=== PATIENT | female | born 1960 | race Caucasian/White ===

== ENCOUNTER 2019-12-30 12:51 | Outpatient (NON) | payer OTHER, SELFPAY ==
[2019-12-30 14:09] LABS: Crystals Synovial Fluid None Seen (None Seen)
[2019-12-30 14:19] LABS: Source Synovial Fluid Synovial fluid
[2019-12-30 14:20] LABS: Appearance Synovial Fluid Hazy (Clear); Color Synovial Fluid Yellow (Colorless); Lymphocytes Synovial Fluid 89 %; Macrophages Synovial Fluid 1 %; Monocytes Synovial Fluid 9 %; Neutrophils Synovial Fluid 1 % (0-25); Nucleated Cell Synovial Fluid 640 /uL (0-200); RBC Synovial Fluid 0 /uL (0-0)
== END 2019-12-30 12:52 ==
PROVIDERS: Visit Provider Orthopaedic Surgery
DX: M25.461 Effusion, right knee (principal); M25.561 Pain in right knee
CPT/HCPCS: 88108; 89051; 89060

== ENCOUNTER 2024-12-08 12:56 | Outpatient (CLI) | payer MEDICARE, OTHER, SELFPAY ==
[2024-12-08 14:51] LABS: Anion Gap -3 mmol/L (4-12); Blood Urea Nitrogen 20 mg/dL (7-17); Calcium 9.4 mg/dL (8.4-10.2); Carbon Dioxide 26 mmol/L (22-30); Chloride 102 mmol/L (98-107); Estimated Glomerular Filt Rate > 60; Glucose 123 mg/dL (65-110); Potassium 4.2 mmol/L (3.4-5.0); Sodium 125 mmol/L (137-145)
--- OUTSIDE RECORDS SUMMARY | 2024-12-08 15:53 | XMS_ITS | Clinical Summary ---
Author Organization [facility] Address [address] [place] [phone] Care Team Providers Care Senior Bioinformatics Specialist Name Role Phone Dom Ta MD Primary Care Provider [phone] Allergies Active Allergy Reactions Criticality Noted Date Comments Erythromycin Penicillins Medications phentermine (ADIPEX-P) 37.5 mg tablet phentermine 37.5 mg tablet TK 1 T PO QD Active meloxicam (MOBIC) 15 mg tablet TK 1 T PO QD 0 Active olmesartan-hydr ochlorothiazide (BENICAR HCT) 20-12.5 mg per tablet Take 1 tablet by mouth daily 7 Active cyclobenzaprine (FLEXERIL) 10 mg tablet TK 1 T PO TID PRN 0 Active ferrous sulfate 325 mg (65 mg of elemental iron) tablet Take 325 mg by mouth daily Active turmeric-turmer ic root extract 450-50 mg capsule Take 500 mg by mouth daily Active ascorbic acid (VITAMIN C) 1,000 mg tablet Take 1,000 mg by mouth daily Active Active Problems Problem Noted Date Diagnosed Date Varicose veins of both legs with edema 0 External hemorrhoids 09/29/2019 Fatigue 09/29/2019 Labyrinthitis 09/29/2019 Pain in thumb joint with movement 09/29/2019 Osteoarthritis 09/29/2019 Essential hypertension 09/10/2019 Localized, primary osteoarthritis of hand 2019 Osteoarthritis of hand 06/21/2010 Closed fracture of distal end of radius 06/22/19 11 Surgical History Surgery Date Site/Laterality Comments WRIST FRACTURE SURGERY SHOULDER SURGERY Medical History Medical History Date Comments Hypertension Family History Medical History Relation Name Comments Hypertension Brother Heart disease Father Hypertension Father Clotting disorder Mother Hypertension Mother Hypertension Sister Relation Name Status Comments Brother Father Mother Sister Social History Tobacco Use Types Packs/Day Years Used Date Smoking Tobacco: Former Smokeless Tobacco: Never Personal Safety Answer Date Recorded Getting School Help Needed Not on file 05/03 Comments Unknown Sex and Gender Information Value Date Recorded Sex Assigned at Not on file 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 Gender Identity Not on file Sexual Orientation Not on file Obstetrics History Last Filed Vital Signs Vital Sign Reading Time Taken Comments Blood Pressure - - Pulse - - Temperature - - Respiratory Rate - - Oxygen Saturation - - Inhaled Oxygen Concentration - - Weight 68 kg (150 lb) 09/29/2019 7:40 AM CDT Height 157.5 cm (5' 2) 09/29/2019 7:40 AM CDT Body Mass Index 27.44 09/29/2019 7:40 AM CDT Plan of Treatment Not on file Insurance [employer] OPEN ACCESS Care Teams Senior Bioinformatics Specialist Relationship Specialty Start Date End Date Dom Ta MD [address] [place] [address] [place] [address] PCP - General Family Medicine 04/06/19
--- OUTSIDE RECORDS SUMMARY | 2024-12-08 15:53 | XMS_ITS | Clinical Summary ---
Author Organization [facility] Address [address] [place] [address] Care Team Providers Care Assistant Inventory Manager Name Role Phone Dom Ta MD Primary Care Provider [phone] Dom Ta MD Unavailable [phone] Source Comments [facility] Affiliates and Associated Physician Practices is amultiple site organization consisting of ambulatory clinics and hospital sitesin [place], [place], [place] and [place]. This disclosure is being madepursuant to the Care Everywhere program and may not contain all information available regarding this patient. Last updated 17.[facility] Allergies Active Allergy Reactions Criticality Noted Date Comments Erythromycin Rash Medium 08/11/2016 Penicillins Rash Medium 08/11/2016 Medications * Be aware that medications may not be up to date on this document. Alwaysverify current medications with the patient. olmesartan-hydr oCHLOROthiazide (BENICAR HCT) 20-12.5 MG tabletIndicatio ns:Hypertension Take 1 Tab by mouth once daily Reasons: High Blood Pressure 30 Tab 08/11/2016 Active olmesartan-hydr oCHLOROthiazide (BENICAR HCT) 20-12.5 MG tablet Take 1 tablet by mouth once daily 09/06/2019 Active cyclobenzaprine (FLEXERIL) 10 MG tablet Take 1 tablet by mouth every 8 hours as needed 08/17/2019 Active ferrous sulfate 325 (65 FE) MG tablet Take 325 mg by mouth once daily Active Turmeric 500 MG Take 500 mg by mouth once daily Active vitamin C (ASCORBIC ACID) 1000 MG tablet Take 1,000 mg by mouth once daily Active meloxicam (MOBIC) 15 MG tablet Take 1 tablet by mouth once daily 30 tablet 1 09/10/2019 Active Active Problems Problem Noted Date Diagnosed Date Essential hypertension 09/10/2019 Localized, primary osteoarthritis of hand 2019 Family History Relation Name Status Comments Other son son has some so rt of muscle issues, not clear dx Social History Tobacco Use Types Packs/Day Years Used Date Smoking Tobacco: Never Smokeless Tobacco: Never Comments:quit 2005 Alcohol Use Standard Drinks/Week Comments Never 0 (1 standard drink = 0.6 oz pur e alcohol) AUDIT-C Answer Date Recorded Q1: How often do you have a drink containing alc ohol? Never 09/10/2019 Average Number of Drinks Not on file 020 Frequency of Binge Drinking Not on file 08/19 Comments Unknown Sex and Gender Information Value Date Recorded Sex Assigned at Not on file Legal Sex Female 9:58 AM CDT Gender Identity Not on file Sexual Orientation Not on file Last Filed Vital Signs Vital Sign Reading Time Taken Comments Blood Pressure 120/70 09/10/2019 1:05 PM CDT Pulse 68 09/10/2019 1:05 PM CDT Temperature 36.8 C (98.3 F) 09/10/2019 1:05 PM CDT Respiratory Rate 18 08/11/2016 11:13 AM CDT Oxygen Saturation 98% 08/11/2016 11:13 AM CDT Inhaled Oxygen Concentration - - Weight 68.9 kg (152 lb) 09/10/2019 1:05 PM CDT Height 157.5 cm (5' 2) 09/10/2019 1:05 PM CDT Body Mass Index 27.8 09/10/2019 1:05 PM CDT Plan of Treatment Health Maintenance Due Date Last Done Comments BONE DENSITY TESTING 1960 COLOGUARD (AGES 45-75) - COL ON CA SCREENING 1960 COLON MONITORING 1959 COLONOSCOPY - COLON CA SCREENING 1959 CT COLONOGRAPHY - COLON CA SCREENING 1960 Colorectal Cancer Screening 1960 FIT - COLON CA SCREENING 1959 FLEX SIG - COLON CA SCREENING 1960 LIPID TESTING 1960 MAMMOGRAM 1959 HIV SCREENING 1974 DTAP/TDAP/TD VACCINES (1 - Tdap) 1978 PNEUMOCOCCAL VACCINE 50+ (1 of 1 - PCV) 2009 ZOSTER VACCINE (1 of 2) 2009 SCREENING FOR DIABETES 09/09/2022 09/10/2019 DEPRESSION SCREENING 02/19/2024 COVID-19 VACCINE (1 - 2023-2 5 season) 2024 INFLUENZA VACCINE (#1) 2024 Respiratory Syncytial Virus (RSV) Vaccine Pt: or over 60 yrs (1 - 1-dose 75+ series) 2034 HEPATITIS C SCREENING Completed 09/10/2019 HEPATITIS B VACCINE Aged Out No longe r eligible based on patient's age to complete this topic HIB VACCINE Aged Out No longer eligi ble based on patient's age to complete this topic HPV VACCINE Aged Out No longer eligi ble based on patient's age to complete this topic MENINGOCOCCAL (Group B) VACC INE SHARED DECISION-MAKING Aged Out No longer eligibl e based on patient's age to complete this topic MENINGOCOCCAL GROUPS A/C/Y/W VACCINE Aged Out No longer eligible b ased on patient's age to complete this topic Procedures Procedure Name Priority Date/Time Associated Diagnosis Comments COMPREHENSIVE METABOLIC PANEL Routine 09/10/2019 2:45 PM CDT Polyarthralgia HEPATITIS C ANTIBODY Routine 09/10/2019 2:45 PM CDT Polyarthralgia from Last 3 Months or Most Recently Relevant to Health Maintenance Results * (ABNORMAL) COMPREHENSIVE METABOLIC PANEL (09/10/2019 2:45 PM CDT) Pathologist [facility] BUN 13 7 - 26 mg/dL 09/10/2019 3:53 PM CDT [facility] Creatinine 0.7 0.6 - 1.2 mg/dL 09/10/2019 3:53 PM CDT [facility] Sodium 139 136 - 145 mmol/L 09/10/2019 3:53 PM CDT [facility] Potassium 4.0 3.5 - 4.5 mmol/L 09/10/2019 3:53 PM CDT [facility] Chloride 101 98 - 107 mmol/L 09/10/2019 3:53 PM [facility] CO2 27 22 - 29 mmol/L 09/10/2019 3:53 PM [facility] Glucose 89 70 - 115 mg/dL 09/10/2019 3:53 PM [facility] Calcium 9.6 8.4 - 10.2 mg/dL 09/10/2019 3:53 PM [facility] Protein Total 7.9 6.0 - 8.3 g/dL 09/10/2019 3:53 PM [facility] Albumin 3.4 3.4 - 5.0 g/dL 09/10/2019 3:53 PM [facility] Bilirubin Total 0.2 0.2 - 1.2 mg/dL 09/10/2019 3:53 PM [facility] Alkaline Phosphatase 246(H) 40 - 150 Units/L 09/10/2019 3:53 PM [facility] ALT 12 0 - 55 Units/L 09/10/2019 3:53 PM [facility] AST 17 5 - 34 Units/L 09/10/2019 3:53 PM [facility] Anion Gap 15 8 - 18 09/10/2019 3:53 PM [facility] BUN/Creatinine Ratio 19 7 - 23 09/10/2019 3:53 PM [facility] Osmolality Calculated 288 270 - 300 mOsm/kg 09/10/2019 3:53 PM [facility] Albumin/Globulin Ratio 0.8(L) 1.1 - 2.3 09/10/2019 3:53 PM [facility] eGFR >60 >60 mL/min/1.7 3 m2 09/10/2019 3:53 PM [facility] Blood BLOOD SPECIMEN / Unknown Lab Venipuncture / Unknown 09/10/2019 2:45 PM CDT 09/10/2019 3:21 PM CDT us Doni Henriquez MD LAB - CHEMISTRY ORDERABLES Fi nal Result [address] [phone] [phone] * HEPATITIS C ANTIBODY (09/10/2019 2:45 PM CDT) Hepatitis C Antibody Non-react brian Non-reac tive 09/10/2019 5:42 PM CDT [facility] Comment:Hepatitis C Antibody screen indicates no serologic evidence of past or current infection with Hepatitis C Virus. Patients with unexplained liver disease who are immunocompromised or suspected of having acute Hepatitis C infection may benefit from Nucleic Acid Test (JIE) for Hepatitis C Viral RNA to confirm Hepatitis C status. Blood BLOOD SPECIMEN / Unknown Lab Venipuncture / Unknown 09/10/2019 2:45 PM CDT 09/10/2019 4:07 PM CDT Doni Henriquez MD LAB - CHEMISTRY ORDERABLES [facility] Result [address] [id number], [facility] [phone] from Last 3 Months or Most Recently Relevant to Health Maintenance Insurance [employer] Care Teams Assistant Inventory Manager Relationship Specialty Start Date End Date Dom Ta MD [address] [place] [address] [address] [place] [phone] PCP - General Family Medicine 08/11/16 Dom Ta MD [address] [place] [address] [address] [place] [phone] Family Medicine Physician Family Medicine 09/10/19
== END 2024-12-08 12:57 | disposition home or self-care (01) ==
LOC: ANHSURGERY 13:03
PROVIDERS: Anesthesiology; PCP Student in an Organized Health Care Education/Training Program; Visit Provider Obstetrics & Gynecology
DX: I10 Essential (primary) hypertension (principal)
CPT/HCPCS: 36415; 80048

== ENCOUNTER 2024-12-14 00:56 | Day surgery (SDC) | payer MEDICARE, OTHER, SELFPAY ==
--- NOTE | 2024-12-04 13:18 | PC.NURSE ---
[facility] has started construction of its new state of the art ER which will open Spring 2026. With this, we anticipate parking may be a challenge for some our surgical patients and families. Parking spaces are limited but are available for all Surgical, obstetrics, and ER patients sharing this lot. If you arrive and find you are having a hard time finding a parking space, please note that we understand the challenges, please drive around the hospital and park near Hospital Entrance 1. When you enter this entrance, you can ask a volunteer to direct or take you back to the surgical waiting area to check in. We appreciate everyone?s understanding of these expected challenges while we build for your future. Report to the Outpatient Waiting Room, entrance under the green pavilion located off [address], at time __8 AM on date _12/14/24 . Planned Procedure Time: __10 AM .? Time changes happen often and if your time is changed the preop area will call you the afternoon before. - You and your visitor will be asked to self-screen and do not enter if you have any COVID symptoms. Please call surgeon if you need to reschedule. - A mask is optional within the hospital at this time. Patients may have clear liquids (water, carbonated beverages, clear teas, apple juice) until 3 hours prior to surgery ( 7 AM) with a maximum of 20 ounces. - No food from midnight until time of surgery and no smoking, or chewing tobacco (or any form of nicotine). No chewing gum, candy or mints. Take only the following medications with a SIP of water on the morning of surgery: ___NONE DO NOT STOP ANY OF YOUR OTHER PRESCRIPTION MEDICATIONS PRIOR TO SURGERY EXCEPT THE FOLLOWING Hold all vitamins and supplements for 3 days per anesthesiologist.LAST DOSE12/10/24 Medications to discontinue per physician CELECOXIB PER DR ANDERSON Please no make-up, nail armenian, hairspray, perfume, deodorant, or body powder the day of surgery.? No jewelry (including any body piercings) or valuables the day of surgery, leave them at home.? Please take a shower or bath the night before, or the morning of, surgery with an antibacterial soap.? Wear comfortable, loose fitting clothing.? Children are encouraged to wear pajamas. - Jewelry must be removed prior to entering the operating room.? Rings and piercings that are not removed may be cut off. - The hospital will not accept responsibility for valuables.? - Please leave all valuables, including medications, at home the day of surgery. If you are going home after surgery, a licensed milk pickup driver must drive you home.? - NO public transportation without another adult if you receive anesthesia. - We recommend that an adult stay with you for 24 hours following discharge. - We also recommend that you do not drive, make important decision, drink alcoholic beverages, or take any drugs that were not prescribed by your health care provider for at least 24 hours after your discharge time. For Pediatric surgeries, we recommend two adults accompany the child home. Follow any additional instructions given to you from your surgeon. Telephone instructions given to _PATIENT and asked if any additional questions and then verbalized understanding. Patient advised to call surgeon office or pre surgery nurse liaison [phone] if any additional questions.
[2024-12-04 13:32] VITALS: BMI 30.2
--- NOTE | 2024-12-11 10:57 | PM.IMHP ---
H&P: HPI History of Present Illness Date/Time: 12/11/24 10:57 Chief Complaint: abnormal pap smear; high risk HPV Narrative: Lia is a 64yo postmenopausal P2002 who presents for scheduled surgery due to persistent CHERRI 1 with high risk HPV 16). In 01/2023 her pap was NILM/HPV 16 positive; colpo was CHERRI 1. This year, pap was LGSIL/HPV +. Colpo was HPV affect. Review of Systems Constitutional: Constitutional: Denies chills, Denies fever(s) and Denies headache(s) Eyes: Eyes: Denies change in vision ENT: Denies dizziness and Denies headache(s) Cardiovascular: Cardiovascular: Denies chest pain and Denies dyspnea Respiratory: Respiratory: Denies cough and Denies dyspnea Gastrointestinal: Gastrointestinal: Denies abdominal pain and Denies change in stool character Genitourinary: Genitourinary: Denies abnormal menses, Denies pelvic pain, Denies vaginal discharge, Denies vaginal odor and Denies vaginal pruritus Neurologic: Denies dizziness and Denies headache(s) Psychiatric: Psychiatric: Denies anxiety and Denies depression [facility] Past Medical History Medical History Abnormal Pap smear of cervix IBS (irritable bowel syndrome) Hypertension Surgical History Surgical History H/O shoulder surgery Hx of cholecystectomy H/O wrist surgery Family History Family History Father Hypertension Heart disease Mother Depression Hypertension DVT (deep venous thrombosis) Sibling Hypertension Social History Social History Smoking packs per day: 1 Smoking cigarettes per day: 20.0 Years smoked: 20 Smoking pack-years: 20.00 Smoking status: Former smoker Tobacco type: cigarettes Smoking end date: 02/18/06 Alcohol intake: never Substance use: never Current Housing: Decline to Answer Concerned About Future Housing: Decline to Answer Difficulty Paying Gas/Electric Bills: Decline to Answer Difficulty Paying for Meds: Decline to Answer Currently Unemployed: Decline to Answer Education: Decline to Answer Difficulty w/ Childcare or Family Care: Decline to Answer Living arrangements: with family Occupation/Education: retired Gender identity (if verbalized by the patient): Female Sexual Orientation (if Verbalized by the Patient): Straight or Heterosexual Spiritual care concerns: No Meds Home Medications and Allergies Home Medications ?Medication ?Instructions ?Recorded ?Confirmed ?Type olmesartan 20 1 tablet PO DAILY #90 tabs 09/14/24 12/04/24 Rx mg-hydrochlorothiazide 12.5 mg tablet Held on 12/09/24. Instructions: Patient Condition clobetasol 0.05 % topical ointment 1 applic topical .COMPLEX #60 grams 10/09/24 12/04/24 Rx celecoxib 200 mg capsule (Celebrex) 200 mg PO DAILY #90 caps 11/20/24 12/04/24 Rx magnesium 250 mg tablet 250 mg PO DAILY 12/04/24 12/04/24 History vitamin E 268 mg (400 unit) capsule 268 mg PO DAILY 12/04/24 12/04/24 History olmesartan 20 mg tablet See Rx Instructions .Route 12/10/24 Rx .COMPLEX #90 tabs Allergies Allergy/AdvReac Type Severity Reaction Status Date / Time erythromycin base Allergy Mild Rash Verified 12/04/24 13:18 Latex, Natural Rubber Allergy Mild Swelling Verified 12/04/24 13:18 Penicillins Allergy Mild Rash Verified 12/04/24 13:18 Exam Const: General: cooperative, comfortable, no acute distress and obese Orientation/consciousness: patient oriented x3 Resp: Effort & Inspection: normal respiratory effort Cardio: Rate: regular rate GI: Inspection: normal to inspection GI Palp: No abdominal tenderness and Yes Soft to palpation : Other: deferred to OR Skin: General skin exam: normal color Neuro: General: patient oriented x3 Extrem: General: normal to inspection Psych: Appearance: grossly normal Affect: normal affect Attitude: cooperative Assessment and Plan Assessment and plan (1) Human papillomavirus (HPV) type 16 DNA detected in cervical specimen: Code(s): R87.810 - Cervical high risk human papillomavirus (HPV) DNA test positive Status: Acute Plan - Persistent high risk HPV positive after 2 years - Per ASCCP guidelines, recommend we proceed with LEEP to remove abnormal tissue and verify no worsening pathology - Proceed with LEEP, top hat, ECC
--- NOTE | 2024-12-14 07:07 | WPDHPUPDATE1 ---
History and Physical Update Update Date/Time: 12/14/24 07:07 History and Physical has been reviewed, including an updated exam of the patient. There are NO changes in the patient's condition. Risks, benefits, and alternatives have been discussed and questions answered. Patient agrees to proceed with LEEP, top hat, ECC.
[2024-12-14] MEDS: LACTATED RINGERS 1,000 ML 30 ML IV CONT (09:00)
[2024-12-14 09:08] VITALS: BP 165/88; PULSE 65; RESP 16; TEMP 36.7; O2SAT 100
[2024-12-14] MEDS: ACETAMINOPHEN 500 MG TABLET 1000 MG PO (09:11)
--- NOTE | 2024-12-14 09:16 | WPDANESEPPF ---
Anes - Initial Pre Proc Eval Procedure: Operation Date: 12/14/24 10:00 Proposed Procedures p Loop Electrical Excision Procedure - Penny Simons MD Date/Time: 12/14/24 09:16 Surgeon: Penny Simons MD Pre Op Diagnosis: Cervical Dysplasia Patient Data Age: 64 Gender: F Height: 1.57 m Weight: 75.4 kg Last Vital Signs Temp 36.7 C 12/14/24 09:08 Pulse 65 12/14/24 09:08 Resp 16 12/14/24 09:08 BP 165/88 H 12/14/24 09:08 Pulse Ox 100 12/14/24 09:08 O2 Del Method Room Air 12/14/24 09:08 Allergies Allergy/AdvReac Type Severity Reaction Status Date / Time erythromycin base Allergy Mild Rash Verified 12/14/24 09:07 Latex, Natural Rubber Allergy Mild Swelling Verified 12/14/24 09:07 Penicillins Allergy Mild Rash Verified 12/14/24 09:07 Home Medications ?Medication ?Instructions ?Recorded ?Confirmed ?Type olmesartan 20 1 tablet PO DAILY #90 tabs 09/14/24 12/04/24 Rx mg-hydrochlorothiazide 12.5 mg tablet Held on 12/09/24. Instructions: Patient Condition clobetasol 0.05 % topical ointment 1 applic topical .COMPLEX #60 grams 10/09/24 12/04/24 Rx celecoxib 200 mg capsule (Celebrex) 200 mg PO DAILY #90 caps 11/20/24 12/14/24 Rx magnesium 250 mg tablet 250 mg PO DAILY 12/04/24 12/04/24 History vitamin E 268 mg (400 unit) capsule 268 mg PO DAILY 12/04/24 12/04/24 History olmesartan 20 mg tablet See Rx Instructions .Route 12/10/24 Rx .COMPLEX #90 tabs Laboratory Tests 12/14/24 08:43 Sodium Pending Patient hx anesthesia problems: none Family hx anesthesia problems: none Results Review: All pre-operative results and documents have been reviewed as part of the pre-operative evaluation. [facility] Past Medical History Medical History Abnormal Pap smear of cervix IBS (irritable bowel syndrome) Hypertension Surgical History Surgical History H/O shoulder surgery Hx of cholecystectomy H/O wrist surgery Family History Family History Father Hypertension Heart disease Mother Depression Hypertension DVT (deep venous thrombosis) Sibling Hypertension Social History Social History Smoking packs per day: 1 Smoking cigarettes per day: 20.0 Years smoked: 20 Smoking pack-years: 20.00 Smoking status: Former smoker Tobacco type: cigarettes Smoking end date: 02/18/06 Alcohol intake: never Substance use: never Current Housing: Decline to Answer Concerned About Future Housing: Decline to Answer Difficulty Paying Gas/Electric Bills: Decline to Answer Difficulty Paying for Meds: Decline to Answer Currently Unemployed: Decline to Answer Education: Decline to Answer Difficulty w/ Childcare or Family Care: Decline to Answer Living arrangements: with family Occupation/Education: retired Gender identity (if verbalized by the patient): Female Sexual Orientation (if Verbalized by the Patient): Straight or Heterosexual Spiritual care concerns: No Anes - Eval Final PreProcedure Day of Procedure 12/14/24 09:16 Patient weight: obese Heart: regular rate and rhythm Lungs: clear to auscultation Airway: Mallampati scale class II Neurological: alert and oriented Last oral intake: >/= 8 hours ASA classification: III Emergent: no Anesthetic plan: proceed Anesthesia type and monitoring: general GIVS and standard monitoring Results Review: All pre-operative results and documents have been reviewed as part of the pre-operative evaluation. Informed Consent: The patient's anesthetic plan and its attendant risks and benefits were discussed with the patient/family/POA. Questions were solicited and answers provided to the satisfaction of the patient/family/POA.
[2024-12-14 09:19] LABS: Sodium 135 mmol/L (137-145)
[2024-12-14] MEDS: BUPIVACAINE/EPINEPHRINE 0.5% 50 ML VIAL 15 ML INFILTRATE (10:33)
[2024-12-14] MEDS: KETOROLAC 15 MG/ML VIAL (*BKC) IV PUSH (10:37)
--- NOTE | 2024-12-14 10:37 | S_PTH ---
PATIENT: Lia Newell LOC: [facility] U#:[id number] AGE/SX: 64/F ROOM: RE12/14/[address]: Penny Simons MD : 1960 BED: DIS: 12/14/2024 SPEC #: [id number] RECD: 12/14/24 12:38 STATUS: ADRIANE REQ #: [id number] JUDY: 12/14/24 10:[address]: Penny Simons DEPT: [facility] Surgical RECD BY: Nora Root ENTERED: 12/14/24 12:39 SP TYPE: Surgical OTHR DR: Nelly Mcnulty, PA-C Tissues: A - Leep/Cone B - Endocervical Curettings C - Leep/Cone Procedures: Hematoxylin and Eosin Stain Gross and Microscopic Level 4 Gross and Microscopic Level 5 P16
--- NOTE | 2024-12-14 10:50 | P.OP_ITS ---
Procedure Note - Detailed Date of Procedure 12/14/24 Pre-op Diagnosis Cervical Dysplasia HPV 16 Post-op Diagnosis Same Procedure Performed LEEP, top hat, ECC Surgeon Penny Simons MD Anesthesia MAC and Local (8cc of 0.5% marcaine w/ epi) Findings LEEP obtained; stitch placed at 12o'clock; deeper leep then obtained from 11- 7o'clock. Top hat obtained. ECC obtained. Good hemostasis noted. Monsel's applied at end. Description of Procedure Lia was taken to the operating room where she was placed under MAC sedation without complications. She was then prepped and draped in the normal fashion in the dorsal lithotomy position with her legs in low Dru stirrups. A time-out was performed and no preoperative antibiotics were indicated. A coated speculum attached to suction was then placed within the vagina, where the cervix was easily identified. The cervix was then injected with 0.25% Marcaine with epinephrine (8cc were used). Lugol?s solution was then applied to the cervix. Uptake was noted throughout. The LEEP was then obtained in a single swipe from the patient?s left to right. The LEEP was removed and a silk stitch was placed at 12:00 p.m. to orient the tissue for pathology. A deeper leep pass was then made again and additional tissue was obtained from 11-7o'clock (patients right side of cervix). A top-hat was then obtained in the same manner. An ECC was then collected. The LEEP bed was then cauterized using the roller ball. Mons el?s solution was then placed in the LEEP bed. Good hemostasis was noted. Sponge, lap, instrument, and needle counts were correct at the end of the procedure. The patient was awoken from anesthesia and taken to recovery in a stable condition with plans of same-day discharge home. Estimated Blood Loss 3 IV Fluids 300 Pathology Yes (Leep + deeper leep, top hat, ECC) Complications No immediate complications Condition Stable Disposition Same day [facility] Billing Surgery - Charge Forward: Surgery Billing
[2024-12-14 10:53] VITALS: BP 106/56; PULSE 63; RESP 16; O2SAT 98
[2024-12-14 11:20] VITALS: BP 114/59; PULSE 60; RESP 16
[2024-12-14 11:50] VITALS: BP 180/88; PULSE 55; RESP 16
== END 2024-12-14 11:59 | disposition home or self-care (01) ==
PROVIDERS: Anesthesiology; PCP Student in an Organized Health Care Education/Training Program; Visit Provider Obstetrics & Gynecology
PROC: 0UBC7ZZ Excision of Cervix, Via Natural or Artificial Opening (ICD-10-PCS; CPT 57522; principal; 2024-12-14 10:00)
DX: N87.1 Moderate cervical dysplasia (principal); R85.612 Low grade squamous intraepithelial lesion on cytologic smear of anus (LGSIL); N72 Inflammatory disease of cervix uteri; N88.8 Other specified noninflammatory disorders of cervix uteri; I10 Essential (primary) hypertension; K58.9 Irritable bowel syndrome, unspecified; E66.9 Obesity, unspecified; Z68.30 Body mass index [BMI] 30.0-30.9, adult; Z79.1 Long term (current) use of non-steroidal anti-inflammatories (NSAID); Z98.890 Other specified postprocedural states; Z90.49 Acquired absence of other specified parts of digestive tract; Z87.891 Personal history of nicotine dependence; Z82.49 Family history of ischemic heart disease and other diseases of the circulatory system
CPT/HCPCS: 57522; 36415; 84295; 88305; 88307; 88342; A9270; J1885; J2003; J2704; J3010; J7120